=== PATIENT | female | born 1975 | race Caucasian/White ===

== ENCOUNTER 2020-04-06 12:03 | Emergency (ER) | payer MEDICAID ==
[~2020-04-06] VITALS: Ht 157.5 cm; Wt 45.5 kg
[2020-04-06 12:09] VITALS: BP 91/70
== END 2020-04-06 13:48 | disposition home or self-care (01) ==
LOC: ER 12:04
DX: M79.605 Pain in left leg (principal); M79.89 Other specified soft tissue disorders; Z88.1 Allergy status to other antibiotic agents; Z88.8 Allergy status to other drugs, medicaments and biological substances
CPT/HCPCS: 93971; 99284